=== PATIENT | male | born 1980 | race Caucasian/White ===

== ENCOUNTER 2024-04-28 11:37 | Outpatient (CLI) | payer BC, SELFPAY ==
--- NOTE | 2024-04-28 13:27 | W.ANESCHARGE ---
Anesthesia Charges Start Date/Time Anesthesia Start Date: 04/28/24 Anesthesia Start Time: 12:44 Stop Date/Time Anesthesia Stop Date: 04/28/24 Anesthesia Stop Time: 13:34
--- NOTE | 2024-04-28 13:35 | W.ANESCHARGE ---
Anesthesia Charges Start Date/Time Anesthesia Start Date: 04/28/24 Anesthesia Start Time: 12:44 Stop Date/Time Anesthesia Stop Date: 04/28/24 Anesthesia Stop Time: 13:34
== END 2024-04-28 11:38 | disposition home or self-care (01) ==
LOC: OP CLINIC 11:41
PROVIDERS: Visit Provider Surgery
DX: K62.5 Hemorrhage of anus and rectum (principal); D12.2 Benign neoplasm of ascending colon; D12.8 Benign neoplasm of rectum; K64.8 Other hemorrhoids
CPT/HCPCS: 00811; 45385; 45398; 88305; J2704